=== PATIENT | female | born 1930 | race Caucasian/White ===

== ENCOUNTER 2018-09-09 07:51 | Emergency (ER) | payer MEDICARE, BC ==
--- NOTE | 2018-09-09 08:20 | EDM.PDOC ---
ED HPI GENERAL MEDICAL PROBLEM - General Chief Complaint: General Stated Complaint: WEAK Time Seen by Provider: 09/09/18 07:51 Source of Information: Reports: Patient, Family (daughter) History Limitations: Reports: No Limitations - History of Present Illness INITIAL COMMENTS - FREE TEXT/NARRATIVE: 87 y.o.w.m with came with his to the ED because of generalized weakness, poor po intake and wt loss. No CP, no SOB, no other acute medical issues. BP 142 /87 Pulse 88 RR 18 Pulse ox 100% on RA Temp 36.9 Onset Date: 09/07/18 Onset Time: 08:00 Duration: Getting Worse, Intermittent Location: Reports: Generalized Quality: Reports: Other (weakness) Improves with: Reports: Rest Worsens with: Reports: Movement Context: Reports: Other (weak, no appatite) Associated Symptoms: Reports: Nausea/Vomiting, Weakness - Related Data Allergies Allergy/AdvReac Type Severity Reaction Status Date / Time No Known Allergies Allergy Verified 09/09/18 08:00 Home Meds: Home Meds Alendronate [Fosamax] 70 mg PO DAILY 09/09/18 [History] Aspirin [Halfprin] 81 mg PO DAILY 09/09/18 [History] Atenolol 50 mg PO DAILY 09/09/18 [History] Cholecalciferol (Vitamin D3) [Vitamin D] 5,000 unit PO DAILY 09/09/18 [History] Lisinopril 10 mg PO DAILY 09/09/18 [History] Simvastatin 20 mg PO DAILY 09/09/18 [History] amLODIPine [Norvasc] 2.5 mg PO DAILY 09/09/18 [History] levoFLOXacin [Levaquin] 500 mg PO DAILY #10 tab 09/09/18 [Rx] levoFLOXacin [Levofloxacin] 250 mg PO DAILY #10 tablet 09/09/18 [Rx] metFORMIN [Glucophage] 500 mg PO DAILY 09/09/18 [History] Past Medical History Cardiovascular History: Reports: High Cholesterol, Hypertension Endocrine/Metabolic History: Reports: Diabetes, Type II Social & Family History - Family History Family Medical History: Noncontributory - Tobacco Use Smoking Status *Q: Never Smoker - Caffeine Use Caffeine Use: Reports: Coffee ED ROS GENERAL - Review of Systems Review Of Systems: See Below Constitutional: Reports: Weakness, Decreased Appetite, Weight Loss HEENT: Reports: Other (dry mouth) Respiratory: Reports: No Symptoms Cardiovascular: Reports: Palpitations Endocrine: Reports: Other (h/o DM) GI/Abdominal: Reports: Decreased Appetite, Nausea, Vomiting (x 4) : Reports: No Symptoms Musculoskeletal: Reports: No Symptoms Skin: Reports: Pallor Neurological: Reports: Weakness (general, is able to walk) Psychiatric: Reports: No Symptoms Hematologic/Lymphatic: Reports: No Symptoms Immunologic: Reports: No Symptoms ED EXAM, GENERAL - Physical Exam Exam: See Below Exam Limited By: No Limitations General Appearance: Alert, WD/WN, Cachetic Eye Exam: Bilateral Eye: Normal Inspection Ears: Normal External Exam, Normal Canal Ear Exam: Bilateral Ear: Auricle Normal Nose: Normal Inspection, Normal Mucosa, No Blood Throat/Mouth: Normal Lips, Normal Voice, No Airway Compromise, Other (dry mucosal membrane) Head: Atraumatic, Normocephalic Neck: Normal Inspection, Supple, Non-Tender, Full Range of Motion Respiratory/Chest: No Respiratory Distress, Lungs Clear, Normal Breath Sounds, No Accessory Muscle Use, Chest Non-Tender Cardiovascular: Normal Peripheral Pulses, Regular Rate, Rhythm, No Edema, No Gallop Peripheral Pulses: 2+: Brachial (R) GI/Abdominal: Normal Bowel Sounds, Soft, Non-Tender, No Organomegaly, Pelvis Stable (Female) Exam: Deferred Rectal (Female) Exam: Deferred Back Exam: Normal Inspection, Full Range of Motion Extremities: Normal Inspection, Normal Range of Motion, Non-Tender, No Pedal Edema Neurological: Alert, Oriented, CN II-XII Intact, Normal Cognition, Other (pt walks slowly) Psychiatric: Normal Affect, Normal Mood Skin Exam: Warm, Dry, Intact, No Rash, Pallor Lymphatic: No Adenopathy EKG INTERPRETATION EKG Date: 09/09/18 Time: 08:25 Rhythm: NSR Rate (Beats/Min): 82 [place]: Normal P-Wave: Present QRS: Normal ST-T: Normal QT: Normal Comparison: NA - No Prior EKG Course - Vital Signs Text/Narrative:: 87 y.o.w.m with came with his to the ED because of generalized weakness, poor po intake and wt loss. No CP, no SOB, no other acute medical issues. BP 142 /87 Pulse 88 RR 18 Pulse ox 100% on RA Temp 36.9 PE: Cachectic, pale 87 y.o.w.f, ambulating fine Labs: CBC nl BMP na 134 K 4.0 BUN 22 Cr 1.3 GFR 39 Lactic acid 3.1 Mg 1.5 UA: pos for UTI with hematuria Impression: Dehydration, UTI, Hypomagnesia Tx: NS. Mg Levaquin Reexam: Pt ate poorly, felt stronger an requested to be D/C'd with daughter. Plan: D/C with instructions Last Recorded V/S: Last Vital Signs Temp 37.0 C 09/09/18 13:00 Pulse 85 09/09/18 13:00 Resp 17 09/09/18 13:00 BP 130/53 L 09/09/18 13:00 Pulse Ox 96 09/09/18 13:00 - Orders/Labs/Meds Labs: Laboratory Tests 09/09/18 09/09/18 09/09/18 Range/Units 08:21 08:21 08:22 WBC 10.2 (4.5-12.0) X10-3/uL RBC 4.44 (3.23-5.20) x10(6)uL Hgb 13.4 (11.5-15.5) g/dL Hct 38.6 (30.0-51.3) % MCV 86.9 (80-96) fL MCH 30.1 (27.7-33.6) pg MCHC 34.6 (32.2-35.4) g/dL RDW 12.3 (11.5-15.5) % Plt Count 141 (125-369) X10(3)uL MPV 8.3 (7.4-10.4) fL Neut % (Auto) 89.5 H (46-82) % Lymph % (Auto) 3.6 L (13-37) % [place] % (Auto) 5.6 (4-12) % Eos % (Auto) 0 L (1.0-5.0) % Baso % (Auto) 1 (0-2) % Neut # (Auto) 9.1 H (1.6-8.3) # Lymph # (Auto) 0.4 L (0.6-5.0) # [place]ner # (Auto) 0.6 (0.0-1.3) # Eos # (Auto) 0.0 (0.0-0.8) # Baso # (Auto) 0.1 (0.0-0.2) # PT (8.7-11.1) INR (0.89-1.13) Sodium (135-145) mmol/L Potassium (3.5-5.3) mmol/L Chloride (100-110) mmol/L Carbon Dioxide (21-32) mmol/L BUN (7-18) mg/dL Creatinine (0.55-1.02) mg/dL Est Cr Clr Drug Dosing mL/min Estimated GFR (MDRD) (>60) BUN/Creatinine Ratio (9-20) Glucose (80-116) mg/dL Lactic Acid (0.4-2.2) mmol/L Calcium (8.6-10.2) mg/dL Magnesium (1.8-2.5) mg/dL Total Bilirubin (0.1-1.3) mg/dL Direct Bilirubin (0.10-0.20) mg/dL AST (5-25) IU/L ALT (12-36) U/L Alkaline Phosphatase (56-112) IU/L Creatine Kinase 201 H (60-160) IU/L Troponin I < 0.017 L (<0.017-0.056) ng/mL Total Protein (6.0-8.0) g/dL Albumin (2.9-4.5) g/dL Amylase (25-115) U/L Urine Color (YELLOW) Urine Appearance (CLEAR) Urine pH (5.0-6.5) Ur Specific [place] (1.010-1.025) Urine Protein (NEGATIVE) mg/dL Urine Glucose (UA) (NORMAL) mg/dL Urine Ketones (NEGATIVE) mg/dL Urine Occult Blood (NEGATIVE) Urine Nitrite (NEGATIVE) Urine Bilirubin (NEGATIVE) Urine Urobilinogen (NEGATIVE) mg/dL Ur Leukocyte Esterase (NEGATIVE) Urine RBC (0-5) Urine WBC (0-5) Ur Squamous Epith Cells (NS,R,O) Amorphous Sediment Urine Bacteria (NS) Urine Mucus (NS) 09/09/18 09/09/18 09/09/18 Range/Units 08:22 08:22 08:22 WBC (4.5-12.0) X10-3/uL RBC (3.23-5.20) x10(6)uL Hgb (11.5-15.5) g/dL Hct (30.0-51.3) % MCV (80-96) fL MCH (27.7-33.6) pg MCHC (32.2-35.4) g/dL RDW (11.5-15.5) % Plt Count (125-369) X10(3)uL MPV (7.4-10.4) fL Neut % (Auto) (46-82) % Lymph % (Auto) (13-37) % [place] % (Auto) (4-12) % Eos % (Auto) (1.0-5.0) % Baso % (Auto) (0-2) % Neut # (Auto) (1.6-8.3) # Lymph # (Auto) (0.6-5.0) # [place]ner # (Auto) (0.0-1.3) # Eos # (Auto) (0.0-0.8) # Baso # (Auto) (0.0-0.2) # PT 10.7 (8.7-11.1) INR 1.10 (0.89-1.13) Sodium 134 L (135-145) mmol/L Potassium 4.2 (3.5-5.3) mmol/L Chloride 96 L (100-110) mmol/L Carbon Dioxide 23 (21-32) mmol/L BUN 22 H (7-18) mg/dL Creatinine 1.3 H (0.55-1.02) mg/dL Est Cr Clr Drug Dosing 24.27 mL/min Estimated GFR (MDRD) 39 L (>60) BUN/Creatinine Ratio 16.9 (9-20) Glucose 220 H (80-116) mg/dL Lactic Acid 3.1 H (0.4-2.2) mmol/L Calcium 9.0 (8.6-10.2) mg/dL Magnesium 1.5 L (1.8-2.5) mg/dL Total Bilirubin 1.2 (0.1-1.3) mg/dL Direct Bilirubin 0.43 H (0.10-0.20) mg/dL AST 51 H (5-25) IU/L ALT 40 H (12-36) U/L Alkaline Phosphatase 58 (56-112) IU/L Creatine Kinase (60-160) IU/L Troponin I (<0.017-0.056) ng/mL Total Protein 7.4 (6.0-8.0) g/dL Albumin 3.8 (2.9-4.5) g/dL Amylase 18 L (25-115) U/L Urine Color (YELLOW) Urine Appearance (CLEAR) Urine pH (5.0-6.5) Ur Specific [place] (1.010-1.025) Urine Protein (NEGATIVE) mg/dL Urine Glucose (UA) (NORMAL) mg/dL Urine Ketones (NEGATIVE) mg/dL Urine Occult Blood (NEGATIVE) Urine Nitrite (NEGATIVE) Urine Bilirubin (NEGATIVE) Urine Urobilinogen (NEGATIVE) mg/dL Ur Leukocyte Esterase (NEGATIVE) Urine RBC (0-5) Urine WBC (0-5) Ur Squamous Epith Cells (NS,R,O) Amorphous Sediment Urine Bacteria (NS) Urine Mucus (NS) 09/09/18 Range/Units 08:28 WBC (4.5-12.0) X10-3/uL RBC (3.23-5.20) x10(6)uL Hgb (11.5-15.5) g/dL Hct (30.0-51.3) % MCV (80-96) fL MCH (27.7-33.6) pg MCHC (32.2-35.4) g/dL RDW (11.5-15.5) % Plt Count (125-369) X10(3)uL MPV (7.4-10.4) fL Neut % (Auto) (46-82) % Lymph % (Auto) (13-37) % [place] % (Auto) (4-12) % Eos % (Auto) (1.0-5.0) % Baso % (Auto) (0-2) % Neut # (Auto) (1.6-8.3) # Lymph # (Auto) (0.6-5.0) # [place] # (Auto) (0.0-1.3) # Eos # (Auto) (0.0-0.8) # Baso # (Auto) (0.0-0.2) # PT (8.7-11.1) INR (0.89-1.13) Sodium (135-145) mmol/L Potassium (3.5-5.3) mmol/L Chloride (100-110) mmol/L Carbon Dioxide (21-32) mmol/L BUN (7-18) mg/dL Creatinine (0.55-1.02) mg/dL Est Cr Clr Drug Dosing mL/min Estimated GFR (MDRD) (>60) BUN/Creatinine Ratio (9-20) Glucose (80-116) mg/dL Lactic Acid (0.4-2.2) mmol/L Calcium (8.6-10.2) mg/dL Magnesium (1.8-2.5) mg/dL Total Bilirubin (0.1-1.3) mg/dL Direct Bilirubin (0.10-0.20) mg/dL AST (5-25) IU/L ALT (12-36) U/L Alkaline Phosphatase (56-112) IU/L Creatine Kinase (60-160) IU/L Troponin I (<0.017-0.056) ng/mL Total Protein (6.0-8.0) g/dL Albumin (2.9-4.5) g/dL Amylase (25-115) U/L Urine Color Other (YELLOW) Urine Appearance Slightly cloudy (CLEAR) Urine pH 5.0 (5.0-6.5) Ur Specific [place] 1.030 H (1.010-1.025) Urine Protein 30 H (NEGATIVE) mg/dL Urine Glucose (UA) Normal (NORMAL) mg/dL Urine Ketones 15 H (NEGATIVE) mg/dL Urine Occult Blood Moderate H (NEGATIVE) Urine Nitrite Negative (NEGATIVE) Urine Bilirubin Small H (NEGATIVE) Urine Urobilinogen 1 H (NEGATIVE) mg/dL Ur Leukocyte Esterase Moderate H (NEGATIVE) Urine RBC 30-40 H (0-5) Urine WBC 30-40 H (0-5) Ur Squamous Epith Cells Many H (NS,R,O) Amorphous Sediment Many Urine Bacteria Moderate H (NS) Urine Mucus Moderate H (NS) Meds: Medications Discontinued Medications Generic Name Dose Route Start Last Admin Trade Name Freq PRN Reason Stop Dose Admin Sodium Chloride 1,000 mls @ 125 mls/hr 09/09/18 08:30 09/09/18 09:07 Normal Saline IV 125 mls/hr ASDIRECTED NÉSTOR Infusion Magnesium Sulfate 2 gm/ Premix 50 mls @ 150 mls/hr 09/09/18 08:47 09/09/18 11 :51 IV 05/12/19 09:06 Not Given ONETIME ONE Magnesium Sulfate 1 gm/ 52 mls @ 100 mls/hr 09/09/18 08:53 09/09/18 10:12 Dextrose/Water IV 09/09/18 09:24 Not Given ONETIME ONE Magnesium Sulfate 2 gm/ Premix 50 mls @ 50 mls/hr 09/09/18 10:00 09/09/18 10: 03 IV 09/09/18 10:30 50 mls/hr ONETIME NÉSTOR Administration Levofloxacin 500 mg 09/09/18 08:45 09/09/18 09:14 Levaquin PO 09/09/18 08:46 500 mg ONETIME ONE Administration Departure - Departure Time of Disposition: 12:58 Disposition: Home, Self-Care 01 Condition: Good Clinical Impression: Hypomagnesemia UTI (urinary tract infection) Qualifiers: Urinary tract infection type: acute cystitis Hematuria presence: with hematuria Qualified Code(s): N30.01 - Acute cystitis with hematuria - Discharge Information Prescriptions: levoFLOXacin [Levofloxacin] 250 mg PO DAILY #10 tablet levoFLOXacin [Levaquin] 500 mg PO DAILY #10 tab Instructions: Hypomagnesemia, Urinary Tract Infection, Adult, [id number], Levofloxacin tablets Referrals: Ankit Stafford MD [Primary Care Provider] - Forms: ED Department Discharge Additional Instructions: Please increase food intake, please take the Abx as recommended, please get your Magnesium and Urine tested again in 3 days. Please come back if your symptoms get worse acutely
[2018-09-09] MEDS ORDERED: Sodium Chloride 0.9% 1,000 ML IV SCH (08:30)
[2018-09-09] MEDS ORDERED: Levofloxacin 500 MG Tab PO ONE (08:45)
[2018-09-09] MEDS ORDERED: Magnesium Sulfate/Water 2 GM in Premix Bag 1 BAG IV ONE (08:47)
[2018-09-09] MEDS ORDERED: Magnesium Sulfate/Water 2 GM in Premix Bag 1 BAG IV SCH (10:00)
== END 2018-09-09 13:16 | disposition home or self-care (01) ==
LOC: FB.ED 07:51
DX: E86.0 Dehydration (principal); N30.01 Acute cystitis with hematuria; E83.42 Hypomagnesemia; E78.00 Pure hypercholesterolemia, unspecified; I10 Essential (primary) hypertension; E11.9 Type 2 diabetes mellitus without complications; Z79.82 Long term (current) use of aspirin; Z79.899 Other long term (current) drug therapy
CPT/HCPCS: 36415; 80048; 80076; 81001; 82150; 82550; 83605; 83735; 84484; 85025; 85610; 87086; 93005; 96361; 96365; 99283; A9270; J3475; J7030